=== PATIENT | female | born 1980 | race Caucasian/White ===

== ENCOUNTER 2017-02-17 18:15 | Emergency (ER) | payer BC ==
[~2017-02-17] VITALS: Ht 165.1 cm; Wt 102.6 kg
[~2017-02-17 18:15] MED LIST: ALBUTEROL; AZITHROMYCIN250 MG PO; FLOVENT DISKUS1 DIS1 IH; INHALE; LOVENOX100 MG/1 M SC; MOTRIN800 MG PO; PERCOCET 5/31 TABLET PO; PREDNISONE50 MG PO; PREFERA-OB P1 TABLET PO; VENTOLIN HFA18 GM IH; ZOFRAN4 MG PO
[2017-02-17] MEDS ORDERED: PREDNISONE50 MG PO (20:34)
[2017-02-17] MEDS ORDERED: VENTOLIN HFA18 GM IH (20:34)
[2017-02-17 21:09] VITALS: BP 124/84
== END 2017-02-17 21:10 | disposition home or self-care (01) ==
LOC: EME 18:15
DX: J45.901 Unspecified asthma with (acute) exacerbation (principal)
CPT/HCPCS: 94644; 99281; 99285; J7512